=== PATIENT | female | born 1970 | race Caucasian/White ===

== ENCOUNTER 2021-06-10 00:17 | Day surgery (SDC) | payer OTHER, SELFPAY ==
[2021-06-04 10:59] VITALS: BMI 26.2
--- NOTE | 2021-06-04 11:13 | PC.NURSE ---
Report to the Outpatient Waiting Room, entrance under the green pavilion located off [facility], at time 0630 on date 06/10/21. OR Time: 0830. - You and your visitor will be asked a series of questions to screen for COVID 19 for your protection. - A mask is required within the hospital. One visitor will be allowed to accompany the patient into the hospital. Patients visitor will be instructed to remain with patient at all times or leave the building. We will allow the visitor to come back to the postoperative area when patient is ready. Preoperative COVID Testing Requirements: No COVID Test needed if: (proof is required; if not received patient will have Rapid Test prior to entry) - Patient has received COVID Vaccine at least 14 days prior to procedure date or - Patient has positive COVID test result within last 90 days of surgery date. COVID Test needed if above criteria is not met Patients may have clear liquids (water, carbonated beverages, clear teas, apple juice) until 3 hours prior to surgery with a maximum of 20 ounces. - No food from midnight until time of surgery Take the following medications with a SIP of water the morning of surgery: ACYCLOVIR (IF NEEDED) Medications to discontinue per physician: VITAMINS Date to take last dose: 06/07/21 Please no make-up, nail bulgarian, hairspray, perfume, deodorant, or body powder the day of surgery. No jewelry (including any body piercings) or valuables the day of surgery, leave them at home. Please take a shower or bath the night before, or the morning of, surgery with an antibacterial soap. Wear comfortable, loose fitting clothing. - Jewelry must be removed prior to entering the operating room. Rings and piercings that are not removed may be cut off. - The hospital will not accept responsibility for valuables. - Please leave all valuables, including medications, at home the day of surgery. If you are going home after surgery, a licensed front loader residential driver must drive you home. - NO public transportation without another adult. - We recommend that an adult stay with you for 24 hours following discharge. - We also recommend that you do not drive, make important decision, drink alcoholic beverages, or take any drugs that were not prescribed by your health care provider for at least 24 hours after your discharge time. Follow any additional instructions given to you from your surgeon. Telephone instructions given to LESLYE RODRIGUEZ and asked if any additional questions and then verbalized understanding. Patient advised to call surgeon office or pre surgery nurse liaison [phone] if any additional questions.
--- NOTE | 2021-06-10 07:13 | WPDHPUPDATE1 ---
History and Physical Update Update Date/Time: 06/10/21 07:13 History and Physical has been reviewed, including an updated exam of the patient. There are NO changes in the patient's condition. Risks, benefits, and alternatives have been discussed and questions answered. Patient agrees to proceed with procedure.
--- NOTE | 2021-06-10 07:18 | WPDANESEPPF ---
Anes - Initial Pre Proc Eval Procedure: Operation Date: 06/10/21 08:45 Proposed Procedures p Excision Right Dorsal Wrist Subcutaneous Mass - Fransico Cabrera MD Date/Time: 06/10/21 07:18 Surgeon: Fransico Cabrera MD Pre Op Diagnosis: right dorsal wrist subq mass Patient Data Age: 51 Gender: F Height: 1.63 m Weight: 69.4 kg Allergies Allergy/AdvReac Type Severity Reaction Status Date / Time No Known Allergies Allergy Verified 06/04/21 10:58 Home Medications Medication Instructions Recorded Confirmed Type acyclovir 400 mg tablet 400 mg PO DAILY PRN 03/03/20 06/04/21 History multivitamin 1 tablet PO DAILY 05/11/21 06/04/21 History Patient hx anesthesia problems: none Family hx anesthesia problems: none Results Review: All pre-operative results and documents have been reviewed as part of the pre-operative evaluation. [facility] Past Medical History Medical History (Updated 06/10/21 @ 07:18 by Stanton Proctor MD) Anxiety Cyst of neck 2009 removed from back of neck, benign Depression Herpes HSV2 Hx of migraines Screening mammogram, encounter for Surgical History Surgical History History of 2004 2008 History of left salpingo-oophorectomy 06/26/20 RA lscope LSO for ovarian cyst Family History Family History Mother Depression Sibling Depression Social History Social History Smoking status: Never smoker Alcohol intake: current Drinks per week: 1 Alcohol use details: 2/MONTH Substance use: never Substance use type: does not use Living arrangements: with family Additional living arrangements comments: spouse 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 Gender identity (if verbalized by the patient): Female Sexual Orientation (if Verbalized by the Patient): Straight or Heterosexual Spiritual care concerns: No Anes - Eval Final PreProcedure Day of Procedure 06/10/21 07:18 Patient weight: normal Heart: regular rate and rhythm Lungs: clear to auscultation Airway: Mallampati scale class II Neurological: alert and oriented Last oral intake: >/= 8 hours ASA classification: II Emergent: no Anesthetic plan: proceed Anesthesia type and monitoring: general GIVS and standard monitoring Results Review: All pre-operative results and documents have been reviewed as part of the pre-operative evaluation. Informed Consent: The patient's anesthetic plan and its attendant risks and benefits were discussed with the patient/family/POA. Questions were solicited and answers provided to the satisfaction of the patient/family/POA.
[2021-06-10 07:35] VITALS: BMI 26.7
[2021-06-10] MEDS: LACTATED RINGERS 1,000 ML 30 ML IV CONT (07:40)
[2021-06-10] MEDS: BACITRACIN OINTMENT 15 GM TUBE 1 APPLIC TOPICAL (09:04)
[2021-06-10 09:14] VITALS: BP 96/65; PULSE 90; RESP 12; O2SAT 94
--- NOTE | 2021-06-10 09:21 | P.OP_ITS ---
Procedure Note - Detailed Date of Procedure 06/10/21 Pre-op Diagnosis right dorsal wrist subq mass Post-op Diagnosis other (Ganglion cyst right dorsal wrist) Procedure Performed Excision of right dorsal wrist ganglion cyst. Surgeon Fransico Cabrera MD Anesthesia MAC Description of Procedure The mass on the right dorsal wrist was marked in the holding area. The patient was taken to the operating room where she was placed supine on the operating table. A time-out was held confirmed. The extremity was prepped and draped in usual fashion. A tourniquet was placed on the arm. The site was remarked and locally infiltrated with 1% lidocaine with epinephrine. The tourniquet was inflated to 250 mmHg. The transverse incision was made and dissection was carried through the subcutaneous tissue to the surface of the ganglion cyst lying beneath a fat pad. A cutaneous nerve branch was identified dissected sli ghtly and retracted throughout the rest of the case. The cyst was carefully dissected around the surface to its origin at the extensor capsule and was removed. The wound was closed with 4-0 Monocryl suture in the subcutaneous tissue. The skin was closed with intradermal 4-0 Monocryl interrupted sutures. The usual bandage was applied tourniquet was released. The patient was discharged with instructions in wound care and follow-up and a prescription for hydrocodone 5/325 6. Estimated Blood Loss 0 Tourniquet Time 20 Drains No Packing No Pathology none sent Complications No immediate complications Condition stable Disposition same day
[2021-06-10 09:40] VITALS: BP 108/67; PULSE 75; RESP 14; O2SAT 99
[2021-06-10] MEDS: oxyCODONE HCL (*CRX) 5 MG TAB IR PO (10:05)
[2021-06-10 10:10] VITALS: BP 112/68; PULSE 67; RESP 14
== END 2021-06-10 10:32 | disposition home or self-care (01) ==
PROVIDERS: Visit Provider Plastic Surgery
PROC: (CPT 25111; principal; 2021-06-10 08:45)
DX: M67.431 Ganglion, right wrist (principal); B00.9 Herpesviral infection, unspecified
CPT/HCPCS: 25111; A9270; J2250; J2704; J3010; J7120

== ENCOUNTER 2021-11-19 01:17 | Day surgery (SDC) | payer OTHER, SELFPAY ==
[2021-11-04 14:03] VITALS: BMI 27.6
[2021-11-19 10:24] VITALS: BMI 27.7
[2021-11-19 10:25] VITALS: BP 108/96; PULSE 74; RESP 16; TEMP 36.4; O2SAT 98
[2021-11-19] MEDS: LACTATED RINGERS 1,000 ML 150 ML IV CONT (10:34)
--- NOTE | 2021-11-19 10:46 | P.HP_ITS ---
History of Present Illness History of Present Illness Consent: Risks, benefits, and alternatives have been discussed and questions answered. Patient agrees to proceed with procedure. Chief complaint: neoplasm screening Narrative: Geno Saucedo is a 51 year old female Referred for colon cancer screening. Review of Systems Review of Systems: All systems reviewed & are unremarkable except as noted in HPI and below PMFSH Past Medical History Medical History Anxiety Cyst of neck 2010 removed from back of neck, benign Depression Herpes HSV2 Hx of migraines Screening mammogram, encounter for Surgical History Surgical History History of 2004 2008 History of left salpingo-oophorectomy 06/26/20 RA lscope LSO for ovarian cyst Family History Family History Mother Depression Sibling Depression Social History Social History Smoking status: Never smoker Alcohol intake: current Drinks per week: 1 Alcohol use details: 2/MONTH Substance use: never Substance use type: does not use Living arrangements: with family Additional living arrangements comments: spouse 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 Gender identity (if verbalized by the patient): Female Sexual Orientation (if Verbalized by the Patient): Straight or Heterosexual Spiritual care concerns: No Meds Home Medications and Allergies Home Medications Medication Instructions Recorded Confirmed Type acyclovir 400 mg tablet 400 mg PO DAILY PRN Cold Sores 03/03/20 11/04/21 History Allergies Allergy/AdvReac Type Severity Reaction Status Date / Time No Known Allergies Allergy Verified 11/04/21 14:01 Vital Signs Vital Signs - 24 hr 11/19/21 10:25 Temperature 36.4 C Pulse Rate 74 Respiratory Rate 16 Blood Pressure 108/96 H Pulse Oximetry 98 Oxygen Delivery Room Air Exam Resp: Auscultation: clear to auscultation bilaterally Cardio: Rate: regular rate Rhythm: regular rhythm GI: GI Palp: Yes Soft to palpation and No Tenderness to palpation present (GI) Assessment and Plan Assessment and plan (1) Colon cancer screening: Code(s): Z12.11 - Encounter for screening for malignant neoplasm of colon Status: Acute Assessment and Plan: Colonoscopy with possible biopsy or polypectomy or cautery or injection of substances.
--- NOTE | 2021-11-19 11:06 | P.PNAN_ITS ---
Anes - Initial Pre Proc Eval Procedure: Operation Date: 11/19/21 11:30 Proposed Procedures p Screening Colonoscopy - Jayson Padilla MD Date/Time: 11/19/21 11:06 Surgeon: Jayson Padilla MD Pre Op Diagnosis: neoplasm screening Patient Data Age: 51 Gender: F Height: 1.63 m Weight: 73.3 kg Last Vital Signs Temp 97.6 F 11/19/21 10:25 Pulse 74 11/19/21 10:25 Resp 16 11/19/21 10:25 BP 108/96 H 11/19/21 10:25 Pulse Ox 98 11/19/21 10:25 O2 Del Method Room Air 11/19/21 10:25 Allergies Allergy/AdvReac Type Severity Reaction Status Date / Time No Known Allergies Allergy Verified 11/04/21 14:01 Home Medications Medication Instructions Recorded Confirmed Type acyclovir 400 mg tablet 400 mg PO DAILY PRN Cold Sores 03/03/20 11/04/21 History Patient hx anesthesia problems: none Family hx anesthesia problems: none Results Review: All pre-operative results and documents have been reviewed as part of the pre- operative evaluation. [facility] Past Medical History Medical History Anxiety Cyst of neck 2010 removed from back of neck, benign Depression Herpes HSV2 Hx of migraines Screening mammogram, encounter for Surgical History Surgical History History of 2004 2008 History of left salpingo-oophorectomy 06/26/20 RA lscope LSO for ovarian cyst Family History Family History Mother Depression Sibling Depression Social History Social History Smoking status: Never smoker Alcohol intake: current Drinks per week: 1 Alcohol use details: 2/MONTH Substance use: never Substance use type: does not use Living arrangements: with family Additional living arrangements comments: spouse 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 Gender identity (if verbalized by the patient): Female Sexual Orientation (if Verbalized by the Patient): Straight or Heterosexual Spiritual care concerns: No Anes - Eval Final PreProcedure Day of Procedure 11/19/21 11:06 Patient weight: normal Heart: regular rate and rhythm Lungs: clear to auscultation Airway: Mallampati scale class II Neurological: alert and oriented Last oral intake: >/= 8 hours ASA classification: II Emergent: no Anesthetic plan: proceed Anesthesia type and monitoring: general GIVS and standard monitoring Results Review: All pre-operative results and documents have been reviewed as part of the pre- operative evaluation. Informed Consent: The patient's anesthetic plan and its attendant risks and benefits were discussed with the patient/family/POA. Questions were solicited and answers provided to the satisfaction of the patient/family/POA.
[2021-11-19 11:40] VITALS: BP 109/73; PULSE 67; RESP 16; O2SAT 98
[2021-11-19 11:50] VITALS: BP 102/69; PULSE 70; RESP 24; O2SAT 100
[2021-11-19 12:00] VITALS: BP 103/69; PULSE 71; RESP 20; O2SAT 100
== END 2021-11-19 12:14 | disposition home or self-care (01) ==
PROVIDERS: PCP Family Medicine; Visit Provider Internal Medicine Gastroenterology
PROC: 0DJD8ZZ Inspection of Lower Intestinal Tract, Via Natural or Artificial Opening Endoscopic (ICD-10-PCS; CPT 45378; principal; 2021-11-19 11:30)
DX: Z12.11 Encounter for screening for malignant neoplasm of colon (principal); F41.9 Anxiety disorder, unspecified; F32.A Depression, unspecified
CPT/HCPCS: 45378; J2704; J7120

== ENCOUNTER → 2022-02-01 12:09 | Outpatient (CLI) | payer OTHER, SELFPAY ==
--- NOTE | ~2022-02-01 | XR_ITS ---
XR knee RT 2V DATE: 02/01/2022 12:38 INDICATION: Right knee pain TECHNIQUE: AP and lateral views COMPARISON: None FINDINGS: No fracture or dislocation or joint effusion, periosteal reaction or bone destruction, radi opaque interarticular loose body or chondrocalcinosis is evident. Joint spaces are preserved. IMPRESSION: No significant abnormality Reviewed, dictated and finalized at location A. IMPRESSION: No significant abnormality
== END ==
PROVIDERS: PCP Family Medicine; Visit Provider Family Medicine
DX: M25.561 Pain in right knee (principal)
CPT/HCPCS: 73560

== ENCOUNTER 2022-02-10 07:27 | Outpatient (CLI) | payer OTHER, SELFPAY ==
[2022-02-10 08:23] LABS: Hematocrit 42.4 % (37.0-47.0); Hemoglobin 14.6 g/dL (12.0-15.0); Mean Corpuscular HGB Conc 34.4 g/dl (32-36); Platelet Count Result 207 k/mm3 (150-375); Red Blood Count 4.56 M/mm3 (4.2-5.4); White Blood Count 6.2 K/mm3 (4.5-10.0)
[2022-02-10 08:24] LABS: Alanine Aminotransferase 22 U/L (6-35); Albumin Level 4.2 g/dL (3.5-5.1); Alkaline Phosphatase 76 U/L (38-126); Anion Gap 10 mmol/L (8-16); Aspartate Amino Transferase 21 U/L (14-36); Bilirubin,Total 0.5 mg/dL (0.2-1.3); Blood Urea Nitrogen 15 mg/dL (7-17); Calcium 8.7 mg/dL (8.4-10.2); Carbon Dioxide 26 mmol/L (22-30); Chloride 104 mmol/L (98-107); Cholesterol 181 mg/dL (0-200); Estimated Glomerular Filt Rate 59; Glucose 104 mg/dL (65-110); HDL Direct 52 mg/dL; Sodium 140 mmol/L (137-145); Triglycerides 83 mg/dL (<150)
[2022-02-10 08:31] LABS: Appearance Urine Slightly Cloudy (Clear); Bilirubin Urine Negative (Negative); Blood Urine Negative (Negative); Color Urine Yellow (Yellow); Glucose Urine UA Negative (Negative); Ketones Urine Negative (Negative); Leukocyte Esterase Ur 1+ LEU/UL (NEGATIVE); Nitrate Urine Negative (Negative); Protein Urine Negative (Negative); Specific Grav Ur 1.025 (1.001-1.035); Urobilinogen Urine 0.2 mg/dL (<2.0)
[2022-02-10 08:35] LABS: LDL Cholesterol Direct 93 mg/dL
[2022-02-10 08:40] LABS: Bacteria Urine Trace /hpf; Mucus Urine Rare /lpf; Squamous Epithelial Cell Urine Many /hpf (Few)
[2022-02-10 08:54] LABS: Thyroid Stimulating Hormone 0.981 uIU/mL (0.465-4.680)
[2022-02-10 08:55] LABS: Add Urine Microscopic? YES
[2022-02-14 03:35] LABS: FSH 63.8 mIU/mL (***)
[2022-02-16 21:05] LABS: Estradiol, Ultrasensitive 36 pg/mL
== END 2022-02-10 07:28 | disposition home or self-care (01) ==
PROVIDERS: PCP Family Medicine; Visit Provider Obstetrics & Gynecology
DX: N93.9 Abnormal uterine and vaginal bleeding, unspecified (principal); Z00.00 Encounter for general adult medical examination without abnormal findings
CPT/HCPCS: 36415; 80053; 80061; 81001; 82670; 83001; 84443; 85027

== ENCOUNTER 2022-04-15 02:10 | Day surgery (SDC) | payer OTHER, SELFPAY ==
[2022-04-08 09:17] VITALS: BMI 28.0
--- NOTE | 2022-04-08 09:22 | PC.NURSE ---
Report to the Outpatient Waiting Room, entrance under the green pavilion located off [facility], at time 0600 on date 04/15/22. Planned Procedure Time: 0730. Time changes happen often and if your time is changed the preop area will call you the afternoon before. - You and your visitor will be asked to self-screen and do not enter if you have any COVID symptoms. - Only one visitor is requested with a max of two and NO children visitors are allowed at this time. - The patient visitor may be requested to leave or wait in car when not with patient due to distancing restrictions. - A mask is REQUIRED within the hospital. Patients may have clear liquids (water, carbonated beverages, clear teas, apple juice) until 3 hours prior to surgery with a maximum of 20 ounces. - No food from midnight until time of surgery Take the following medications with a SIP of water the morning of surgery: VALACYCLOVIR IF NEEDED Medications to discontinue per physician: VITAMINS Date to take last dose: 04/11/22 Please no make-up, nail singaporean, hairspray, perfume, deodorant, or body powder the day of surgery. No jewelry (including any body piercings) or valuables the day of surgery, leave them at home. Please take a shower or bath the night before, or the morning of, surgery with an antibacterial soap. Wear comfortable, loose fitting clothing. - Jewelry must be removed prior to entering the operating room. Rings and piercings that are not removed may be cut off. - The hospital will not accept responsibility for valuables. - Please leave all valuables, including medications, at home the day of surgery. If you are going home after surgery, a licensed commercial front load driver must drive you home. - NO public transportation without another adult if you receive anesthesia. - We recommend that an adult stay with you for 24 hours following discharge. - We also recommend that you do not drive, make important decision, drink alcoholic beverages, or take any drugs that were not prescribed by your health care provider for at least 24 hours after your discharge time. Follow any additional instructions given to you from your surgeon. If you or anyone in your household have experienced Covid symptoms in the past week, please notify your surgeon or the nurse liaison at the phone number below for possible testing. Telephone instructions given to PT - LESLYE RODRIGUEZ and asked if any additional questions and then verbalized understanding. Patient advised to call surgeon office or pre surgery nurse liaison [phone] if any additional questions.
--- NOTE | 2022-04-14 13:38 | PM.IMHP ---
H&P: HPI History of Present Illness Date/Time: 04/14/22 13:38 52-year-old 5 para 2031 female presents for evaluation of postmenopausal bleeding. Ultrasound has been ordered which showed a normal endometrial cavity, recent lab work has confirm menopausal status. She had not had a period for over 1 year and then had multiple episodes of light bleeding at the end of 2021, none particularly heavy but indeed has been shown to be postmenopausal on multiple occasions with lab studies and therefore presents for evaluation and tissue sampling. Chief Complaint: Postmenopausal bleeding Review of Systems Review of Systems: All systems reviewed & are unremarkable except as noted in HPI and below PMFSH Past Medical History Medical History Anxiety Cyst of neck 2010 removed from back of neck, benign Depression Herpes HSV2 Hx of migraines Screening mammogram, encounter for Vaginal discharge Surgical History Surgical History History of 2004 2008 History of left salpingo-oophorectomy 06/26/20 RA lscope LSO for ovarian cyst History of orthopedic surgery cyst removed from right hand Family History Family History Mother Depression Sibling Depression Social History Social History Smoking status: Never smoker Alcohol intake: current Drinks per week: 1 Alcohol use details: 2/MONTH Substance use: never Substance use type: does not use Additional living arrangements comments: spouse 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 Gender identity (if verbalized by the patient): Female Sexual Orientation (if Verbalized by the Patient): Straight or Heterosexual Spiritual care concerns: No Meds Home Medications and Allergies Home Medications Medication Instructions Recorded Confirmed Type acyclovir 400 mg tablet 400 mg PO DAILY PRN Cold Sores 03/03/20 04/08/22 History ibuprofen 800 mg tablet 800 mg PO Q6H PRN Pain 04/08/22 04/08/22 History multivitamin 1 tablet PO DAILY 04/08/22 04/08/22 History Allergies Allergy/AdvReac Type Severity Reaction Status Date / Time No Known Allergies Allergy Verified 04/08/22 09:16 Exam Const: General: cooperative, healthy appearing and comfortable Resp: Effort & Inspection: normal respiratory effort Auscultation: clear to auscultation bilaterally Cardio: Rate: regular rate Rhythm: regular rhythm GI: Inspection: normal to inspection Auscultation: normal bowel sounds : External Female Exam: normal external appearance Speculum Exam - Vagina: normal appearance of the vagina Speculum Exam - Cervix: normal appearance of the cervix Bimanual exam- vagina & uterus: normal bimanual exam Bimanual Exam- Adnexa, other: normal adnexae Assessment and Plan Assessment and plan (1) Postmenopausal bleeding: Code(s): N95.0 - Postmenopausal bleeding Status: Acute Assessment and Plan: proceed with hysteroscopy with uterine curettings. Further plan based on findings of pathology.
--- NOTE | 2022-04-14 16:10 | WPDANESEPPF ---
Anes - Initial Pre Proc Eval Procedure: Operation Date: 04/15/22 07:30 Proposed Procedures p Hysteroscopy Dilation and Curettage - Nishant Velarde MD Date/Time: 04/14/22 16:10 Surgeon: Nishant Velarde MD Pre Op Diagnosis: abnormal uterine bleeding Patient Data Age: 52 Gender: F Height: 1.63 m Weight: 73.95 kg Allergies Allergy/AdvReac Type Severity Reaction Status Date / Time No Known Allergies Allergy Verified 04/08/22 09:16 Home Medications Medication Instructions Recorded Confirmed Type acyclovir 400 mg tablet 400 mg PO DAILY PRN Cold Sores 03/03/20 04/08/22 History ibuprofen 800 mg tablet 800 mg PO Q6H PRN Pain 04/08/22 04/08/22 History multivitamin 1 tablet PO DAILY 04/08/22 04/08/22 History Patient hx anesthesia problems: none Family hx anesthesia problems: none Results Review: All pre-operative results and documents have been reviewed as part of the pre-operative evaluation. [facility] Past Medical History Medical History Anxiety Cyst of neck 2010 removed from back of neck, benign Depression Herpes HSV2 Hx of migraines Screening mammogram, encounter for Vaginal discharge Surgical History Surgical History History of 2004 2008 History of left salpingo-oophorectomy 06/26/20 RA lscope LSO for ovarian cyst History of orthopedic surgery cyst removed from right hand Family History Family History Mother Depression Sibling Depression Social History Social History Smoking status: Never smoker Alcohol intake: current Drinks per week: 1 Alcohol use details: 2/MONTH Substance use: never Substance use type: does not use Living arrangements: with family Additional living arrangements comments: spouse 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 Gender identity (if verbalized by the patient): Female Sexual Orientation (if Verbalized by the Patient): Straight or Heterosexual Spiritual care concerns: No Anes - Eval Final PreProcedure Day of Procedure 04/14/22 16:10 Patient weight: overweight Heart: regular rate and rhythm Lungs: clear to auscultation Airway: Mallampati scale class II Neurological: alert and oriented Last oral intake: >/= 8 hours ASA classification: II Emergent: no Anesthetic plan: proceed Anesthesia type and monitoring: general GIVS and standard monitoring Results Review: All pre-operative results and documents have been reviewed as part of the pre-operative evaluation. Informed Consent: The patient's anesthetic plan and its attendant risks and benefits were discussed with the patient/family/POA. Questions were solicited and answers provided to the satisfaction of the patient/family/POA.
[2022-04-15 06:30] VITALS: BP 100/74; PULSE 77; RESP 16; TEMP 36.4; O2SAT 100
[2022-04-15] MEDS: LACTATED RINGERS 1,000 ML 30 ML IV CONT (06:30)
[2022-04-15] MEDS: ACETAMINOPHEN 500 MG TABLET 1000 MG PO (06:30)
--- NOTE | 2022-04-15 06:57 | WPDHPUPDATE1 ---
History and Physical Update Update Date/Time: 04/15/22 06:57 History and Physical has been reviewed, including an updated exam of the patient. There are NO changes in the patient's condition. Risks, benefits, and alternatives have been discussed and questions answered. Patient agrees to proceed with procedure.
[2022-04-15] MEDS: LIDOCAINE HCL 1% PF 30 ML VIAL 10 ML INFILTRATE (07:46)
--- NOTE | 2022-04-15 07:56 | W.PM.PROC2 ---
Procedure Note - Detailed Date of Procedure 04/15/22 Pre-op Diagnosis 1. Postmenopausal bleeding Post-op Diagnosis Same (2. Uterine septum ) Procedure Performed Patient prepped and draped usual manner for this procedure. Cervix was dilated to allow the hysteroscope be placed which found atrophy throughout and a mild uterine septum. No other abnormalities were appreciated. Curettings were obtained the tissue was scant. At this point the procedure was considered terminated the patient was sent to recovery room in stable condition. Surgeon Nishant Velarde MD Anesthesia MAC and Local Findings 1. Atrophic uterine cavity 2. Minor anatomic abnormality consistent with uterine septum Description of Procedure Patient prepped in usual manner for this procedure. Cervix dilated to allow the hysteroscope be placed. Hysteroscopic exam revealed minor uterine defect consistent with small septum, and atrophic endometrial cavity. Curettings were obtained though tissue was scant. At this point the procedure was considered terminated the patient was sent to recovery room in stable condition. Estimated Blood Loss 10 Drains No Packing No Pathology Yes Complications No immediate complications Condition Stable Disposition PACU [facility] Billing Surgery - Charge Forward: Surgery Billing
[2022-04-15 08:00] VITALS: BP 103/73; PULSE 79; RESP 12; O2SAT 100
[2022-04-15] MEDS: fentaNYL CITRATE INJ (*CRX) 100 MCG/2 ML VIAL 25 MCG IV PUSH ×2 (08:14→08:17)
[2022-04-15 08:30] VITALS: BP 103/69; PULSE 71; RESP 12; O2SAT 96
[2022-04-15 08:59] VITALS: BP 119/67; PULSE 61; RESP 16
[2022-04-15] MEDS: oxyCODONE HCL (*CRX) 5 MG TAB IR PO (09:12)
[2022-04-15 09:30] VITALS: BP 106/67; PULSE 58; RESP 16
== END 2022-04-15 09:45 | disposition home or self-care (01) ==
PROVIDERS: PCP Family Medicine; Visit Provider Obstetrics & Gynecology
PROC: 0U5B8ZZ Destruction of Endometrium, Via Natural or Artificial Opening Endoscopic (ICD-10-PCS; CPT 58563; principal; 2022-04-15 07:30)
DX: N95.0 Postmenopausal bleeding (principal); B00.9 Herpesviral infection, unspecified
CPT/HCPCS: 58558; 88305; A9270; J2250; J2704; J3010; J7030; J7120

== ENCOUNTER 2022-10-04 13:54 | Outpatient (CLI) | payer OTHER, SELFPAY ==
--- NOTE | ~2022-10-04 | MM_ITS ---
EXAMINATION: MM screening [place] BI w vickie HISTORY: Screening mammogram TECHNIQUE: Craniocaudal and mediolateral oblique 3-D tomosynthesis images were obtained and synthetic 2-D images were generated. CAD analysis was submitted and interpreted. COMPARISON: 04/16/2015, 03/28/2014 bilateral screening mammogram examinations BREAST PARENCHYMAL COMPOSITION: There are scattered areas of fibroglandular density. FINDINGS: There is a 6 mm circumscribed low-density opacity with halo sign in the posterior outer mid right breast; the mammographic features are benign. There is no evidence of suspicious mass, calcifi cation, or architectural distortion to suggest malignancy in either breast. There has been no suspici ous interval change. IMPRESSION: 1. Benign finding. No mammographic evidence of malignancy. 2. Recommend routine screening mammography in one year. BI-RADS Category 2: Benign finding(s). Reviewed, dictated and finalized at location A.
== END 2022-10-04 13:55 | disposition home or self-care (01) ==
LOC: CHSIMG 13:56
PROVIDERS: PCP Family Medicine; Visit Provider Obstetrics & Gynecology
DX: Z12.31 Encounter for screening mammogram for malignant neoplasm of breast (principal)
CPT/HCPCS: 77063; 77067

== ENCOUNTER 2022-11-11 08:49 | Emergency (ER) | payer OTHER, SELFPAY ==
--- NOTE | 2022-11-11 09:11 | ED.URI ---
HPI - URI/Sore Throat General Chief Complaint: Upper Respiratory Infection Stated Complaint: FEVER/CHILLS/SORE THROAT Time Seen by Provider: 11/11/22 09:11 Source: patient, RN notes reviewed and old records reviewed Mode of arrival: ambulatory Limitations: no limitations History of Present Illness HPI Narrative: 52 year old female accompanied by son who is also ill presents t express care with complaints of 2 day duration of sore throat, fevers, sinus pressure, headache and intermittent cough. Patient reports that her temperature was 102F last evening and she took some Tylenol, [place] cold medication, and did nasal rinse. Patient reports that throat is painful with swallowing , has headache and facial sinus pressure does have history of migraines and did take migraine medication also last evening. Patient denies any shortness of breath or any history of asthma, patient reports that older son has been recently ill also but seems to be getting better. MD elicited complaint: cough, sore throat, rhinorrhea, nasal congestion, sinus pain and other (headache) Onset (ago): day(s) (2) Pain scale (0-10): 5 Able to tolerate fluids by mouth: Yes Treatments prior to arrival: acetaminophen, cold medicine and other (sinus rinse) Related Data Home Medications Medication Instructions Recorded Confirmed ibuprofen 800 mg tablet 800 mg PO Q6H PRN Pain 04/08/22 11/11/22 multivitamin 1 tablet PO DAILY 04/08/22 11/11/22 Allergies Allergy/AdvReac Type Severity Reaction Status Date / Time No Known Allergies Allergy Verified 11/11/22 09:03 Review of Systems Review of Systems: CONSTITUTIONAL: Reports malaise, chills, sweats, or fever. EYES: Denies visual changes, redness, or discharge. ENT: Reports rhinorrhea, congestion, sinus pain, no otalgia positive for sore throat. CARDIOVASCULAR: Denies chest pain, palpitations, or edema. RESPIRATORY: Reports intermittent cough.? Denies dyspnea. GASTROINTESTINAL: Denies abdominal pain, nausea, vomiting, diarrhea SKIN: Denies rash or itching. MUSCULOSKELETAL: Denies myalgia. NEUROLOGIC: Reports headache. All systems reviewed & are unremarkable except as noted in HPI and below PMFSH Past Medical History Medical History Anxiety Cyst of neck 2010 removed from back of neck, benign Depression Herpes HSV2 Hx of migraines Migraine headache Screening mammogram, encounter for Vaginal discharge Surgical History Surgical History History of 2004 2008 History of hysteroscopy (04/15/22) Hscope D&C History of left salpingo-oophorectomy 06/26/20 RA lscope LSO for ovarian cyst History of orthopedic surgery cyst removed from right hand Family History Family History Mother Depression Sibling Depression Social History Social History Smoking status: Never smoker Alcohol intake: current Drinks per week: 1 Alcohol use details: 2/MONTH Substance use: never Substance use type: does not use Living arrangements: with family Additional living arrangements comments: spouse Occupation/Education: occupation 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 There is no relevant family history pertinent to the presenting complaint Exam Narrative: GENERAL: Well-appearing, well-nourished, and in no acute distress. HEAD: Normocephalic EYES: PERRLA, conjunctivae clear ENT: Nares clear, turbinates edematous and erythematous, clear discharge. Mucou
[2022-11-11 09:12] VITALS: BP 112/87; PULSE 90; RESP 16; TEMP 36.6; O2SAT 98
== END 2022-11-11 09:45 | disposition home or self-care (01) ==
PROVIDERS: Emergency Provider Registered Nurse; PCP Family Medicine
DX: J06.9 Acute upper respiratory infection, unspecified (principal); R05.9 Cough, unspecified
CPT/HCPCS: 87081; 87880; 99213; G0463

== ENCOUNTER 2023-11-15 08:52 | Emergency (ER) | payer OTHER, SELFPAY ==
[2023-11-15 09:02] VITALS: BP 129/89; PULSE 84; RESP 16; TEMP 36.9; O2SAT 97
--- NOTE | 2023-11-15 09:06 | ED.EYEPROB ---
HPI - Eye Problem General Chief complaint: Eye Problems Stated complaint: Poss pink eye/sinus issues Time Seen by Provider: 11/15/23 09:05 Source: patient Mode of arrival: ambulatory Limitations: no limitations History of Present Illness HPI Narrative: Geno is a 53-year-old female patient presenting to the clinic today with complaints of possible pinkeye that started in the right eye last night and now is moving to the left eye. Is having brown discharge coming from the eye. She denies any pain or visual changes however she does have some itchiness. Also concerned about a possible sinus infection. She reports she has had symptoms for approximately 1 week. Is blowing out green nasal discharge with blood. Is having a lot of sinus pressure and congestion. She denies any fever or chills. Also reports a sore throat and feels as though her glands are swollen. She denies any chest pain or shortness of breath. Related Data Home Medications Medication Instructions Recorded Confirmed multivitamin 1 tablet PO DAILY 04/08/22 11/15/23 Allergies Allergy/AdvReac Type Severity Reaction Status Date / Time No Known Allergies Allergy Verified 11/15/23 09:06 Review of Systems Review of Systems: Pertinent positives per HPI. Patient denies any fever, chills, rash, headache, visual changes, dizziness, shortness of breath, chest pain, palpitations, nausea, vomiting, diarrhea, constipation, abdominal pain, or any urinary issues. [facility] Past Medical History Medical History Anxiety Cyst of neck 2009 removed from back of neck, benign Depression Herpes HSV2 Hx of migraines Migraine headache Screening mammogram, encounter for Vaginal discharge Surgical History Surgical History History of 2004 2008 History of hysteroscopy (04/15/22) Hscope D&C History of left salpingo-oophorectomy 06/26/20 RA lscope LSO for ovarian cyst History of orthopedic surgery cyst removed from right hand Family History Family History Mother Depression Sibling Depression Social History Social History Smoking status: Never smoker Second hand tobacco smoke exposure: No Alcohol intake: current Drinks per week: 1 Alcohol use details: 2/MONTH Substance use: never Substance use type: does not use Do You Feel Safe in your Home?: Yes Lack of Transportation: No Lack of Food: Never True Current Housing: I Have Housing Concerned About Future Housing: No Difficulty Paying Gas/Electric Bills: No Difficulty Paying for Meds: No Currently Unemployed: No Education: Master's Degree or Higher Difficulty w/ Childcare or Family Care: No Living arrangements: with family Additional living arrangements comments: spouse Occupation/Education: occupation 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 There is no relevant family history pertinent to the patient complaint. Exam Narrative: General: Well-developed, well nourished, in no apparent distress Head: Normocephalic, atraumatic Eyes: Pupils equally round and reactive to light bilaterally, EOM intact, sclera and conjunctive injected bilaterally, light brown mucopurulent discharge coming from the right eye, lids normal Ears: TMs intact, red, congested, ear canals clear, no drainage, grossly hearing normal. Nose: Nares patent, green nasal discharge, dried blood noted in bilateral nares, white streaking with mod
== END 2023-11-15 09:14 | disposition home or self-care (01) ==
PROVIDERS: Emergency Provider Nurse Practitioner Family; PCP Family Medicine
DX: J01.90 Acute sinusitis, unspecified (principal); H10.9 Unspecified conjunctivitis
CPT/HCPCS: 99213; G0463

== ENCOUNTER 2023-12-01 08:18 | Outpatient (CLI) | payer OTHER, SELFPAY ==
--- NOTE | ~2023-12-01 | MM_ITS ---
EXAMINATION: MM screening [place] BI w vickie HISTORY: Screening TECHNIQUE: Craniocaudal and mediolateral oblique 3-D tomosynthesis images were obtained and synthetic 2-D images were generated. CAD analysis was submitted and interpreted. COMPARISON: Comparison to multiple prior studies sequentially, with oldest reviewed study dated 03/11. BREAST PARENCHYMAL COMPOSITION: Not dense: There are scattered areas of fibroglandular density. FINDINGS: There is no evidence of suspicious mass, calcification, or architectural distortion to sugg est malignancy in either breast. There has been no suspicious interval change. IMPRESSION: 1. No mammographic evidence of malignancy. 2. Recommend routine screening mammography in one year. BI-RADS Category 1: Negative Reviewed, dictated and finalized at location B.
== END 2023-12-01 08:19 | disposition home or self-care (01) ==
PROVIDERS: PCP Family Medicine; Visit Provider Family Medicine
DX: Z12.31 Encounter for screening mammogram for malignant neoplasm of breast (principal)
CPT/HCPCS: 77063; 77067

== ENCOUNTER 2024-07-12 08:28 | Outpatient (CLI) | payer OTHER, SELFPAY ==
[2024-07-12 10:41] LABS: Add Urine Microscopic? YES; Appearance Urine Clear (Clear); Bacteria Urine None Seen /hpf; Bilirubin Urine Negative (Negative); Blood Urine Negative (Negative); Color Urine Yellow (Yellow); Glucose Urine UA Negative (Negative); Ketones Urine Negative (Negative); Leukocyte Esterase Ur 1+ LEU/UL (Negative); Nitrate Urine Negative (Negative); Non Pathogenic Casts 0-2; Protein Urine Negative (Negative); RBC Urine 0-2 /hpf (0-2); Specific Grav Ur 1.024 (1.001-1.035); Squamous Epithelial Cell Urine None Seen /hpf (Few); Urobilinogen Urine 0.2 mg/dL (<2.0)
[2024-07-12 10:43] LABS: Alanine Aminotransferase 35 U/L (6-35); Albumin Level 4.4 g/dL (3.5-5.1); Alkaline Phosphatase 99 U/L (38-126); Anion Gap 10 mmol/L (4-12); Aspartate Amino Transferase 27 U/L (14-36); Bilirubin,Total 0.6 mg/dL (0.2-1.3); Blood Urea Nitrogen 18 mg/dL (7-17); Calcium 9.4 mg/dL (8.4-10.2); Carbon Dioxide 25 mmol/L (22-30); Chloride 105 mmol/L (98-107); Cholesterol 165 mg/dL (0-200); Estimated Glomerular Filt Rate > 60; Glucose 90 mg/dL (65-110); HDL Direct 58 mg/dL; Potassium 4.3 mmol/L (3.4-5.0); Sodium 140 mmol/L (137-145); Triglycerides 91 mg/dL (<150)
[2024-07-12 10:54] LABS: LDL Cholesterol Direct 81 mg/dL
[2024-07-12 11:14] LABS: Thyroid Stimulating Hormone 0.677 uIU/mL (0.465-4.680)
[2024-07-12 11:59] LABS: Hematocrit 46.1 % (37.0-47.0); Hemoglobin 15.5 g/dL (12.0-15.0); Mean Corpuscular HGB Conc 33.6 g/dl (32-36); Mean Corpuscular Hemoglobin 31.1 pg (26-34); Mean Corpuscular Volume 92.6 fl (80-100); Mean Platelet Volume 9.6 fl (7.4-10.4); Platelet Count Result 233 k/mm3 (150-375); Red Blood Count 4.98 M/mm3 (4.2-5.4); Red Cell Distribution Width 12.3 % (11.5-14.5); White Blood Count 5.8 K/mm3 (4.5-10.0)
== END 2024-07-12 08:29 | disposition home or self-care (01) ==
LOC: ANHLAB 08:31
PROVIDERS: PCP Family Medicine; Visit Provider Family Medicine
DX: E78.5 Hyperlipidemia, unspecified (principal); R53.83 Other fatigue; Z00.00 Encounter for general adult medical examination without abnormal findings
CPT/HCPCS: 36415; 80053; 80061; 81001; 84443; 85027

== ENCOUNTER 2024-08-28 11:50 | Outpatient (CLI) | payer OTHER, SELFPAY ==
[2024-08-28 12:19] LABS: Iron 128 ug/dL (37-170)
[2024-08-28 12:28] LABS: Percent Iron Saturation 53 % (20-50)
== END 2024-08-28 11:51 | disposition home or self-care (01) ==
LOC: ANHLAB 11:52
PROVIDERS: PCP Family Medicine; Visit Provider Physician Assistant Medical
DX: Z13.228 Encounter for screening for other metabolic disorders (principal); Z13.29 Encounter for screening for other suspected endocrine disorder; Z83.49 Family history of other endocrine, nutritional and metabolic diseases
CPT/HCPCS: 36415; 81256; 82728; 83540; 83550

== ENCOUNTER 2024-12-03 13:46 | Outpatient (CLI) | payer OTHER, SELFPAY ==
--- NOTE | ~2024-12-03 | MM_ITS ---
EXAMINATION: screening [facility] BI w vickie INDICATION: Asymptomatic, referred for screening mammogram COMPARISON: 12/01/2023 through 03/28/2014 TECHNIQUE: Digital Breast Tomosynthesis CC, MLO views of Both breasts were obtained with computer-aided detection to assist in interpretation of the study. FINDINGS: There are scattered areas of fibroglandular density. There are 2 adjacent asymmetries seen on the cc view in the Medial right breast at posterior third. Elsewhere, there are no mammographic features of malignancy. IMPRESSION: 1. Right breast asymmetries. 2. No evidence of malignancy in the Left breast. RECOMMENDATION: Right breast Diagnostic mammogram with true lateral, appropriate spot compression views and an ultrasound if needed. BI-RADS Category 0: Incomplete: Needs additional imaging evaluation. Reviewed, dictated and finalized at location B. IMPRESSION: 1. Right breast asymmetries. 2. No evidence of malignancy in the Left breast. RECOMMENDATION: Right breast Diagnostic mammogram with true lateral, appropriate spot compressi on views and an ultrasound if needed. BI-RADS Category 0: Incomplete: Needs additional imaging evaluation.
--- OUTSIDE RECORDS SUMMARY | 2024-12-03 13:51 | XMS_ITS | Clinical Summary ---
Author Organization [facility] Ismael torres Kemo Address [address] [place] [address] Care Team Providers Care Motorcycle Police Officer Name Role Phone Jared Hernandes MD Primary Care Provider Social History Tobacco Use Types Packs/Day Years Used Date Smoking Tobacco: Never Assessed Comments Unknown Sex and Gender Information Value Date Recorded Sex Assigned at Not on file Legal Sex Female 10:42 AM CDT Gender Identity Not on file Sexual Orientation Not on file Plan of Treatment Upcoming Encounters Date Type Department Care Team (Late st Contact Info) Description 01/23/2025 1:30 PM CDT Office Visit [facility] Oncology and Hematology - [place] [address] [facility] [address] [place] [address] Storm Tai MD [address] [place] [address] Health Maintenance Due Date Last Done Comments DTAP/TDAP/TD VACCINES (1 - Tdap) 1990 HEPATITIS B VACCINES (1 of 3 - 19+ 3-dose series) 02/09 HPV/Cotest (21-29) 02/19/1992 CERVICAL CANCER SCREENING 2001 HPV/Cotest (30-65) 2001 PAP SMEAR 2001 BREAST CANCER SCREENING 2011 COLORECTAL SCREENING 02/19/2016 Colorectal Cancer Screening 02/19/2016 FIT-DNA Q 3 years 02/19/2016 FIT/FOBT Q 1 year 02/19/2016 Flex Sig/CT Colonography Q 5 years 02/19/2016 ZOSTER VACCINE (1 of 2) 2021 INFLUENZA VACCINE (#1) 2024 Insurance [facility] CHOICE [id number] Care Teams Motorcycle Police Officer Relationship Specialty Start Date End Date Jared Hernandes MD [address] [facility] [address] [place] [address] PCP - General Family Practice 10/25/24
== END 2024-12-03 13:47 | disposition home or self-care (01) ==
LOC: CHSIMG 13:47
PROVIDERS: PCP Family Medicine; Visit Provider Obstetrics & Gynecology
DX: Z12.31 Encounter for screening mammogram for malignant neoplasm of breast (principal); R92.8 Other abnormal and inconclusive findings on diagnostic imaging of breast
CPT/HCPCS: 77063; 77067

== ENCOUNTER 2024-12-13 08:57 | Outpatient (CLI) | payer OTHER, SELFPAY ==
--- NOTE | ~2024-12-13 | MMUS_ITS ---
EXAMINATION: US breast RT limited, MM diagnostic lima RT w vickie HISTORY: Inconclusive mammogram. Right breast asymmetries. TECHNIQUE: [Additional images of the [[right breast]] were performed using full field digital mammography. 3-D tomosynthesis were also obtained and synthetic 2- D images were generated. CAD analysis was submitted and interpreted. High resolution [right breast ultrasound was performed of the medial right breast from the 1 to 5:00 position.] ] COMPARISON: Mammograms from 12/03/2024, 12/01/2023 and 10/04/2022 BREAST PARENCHYMAL COMPOSITION: There are scattered areas of fibroglandular density FINDINGS: MAMMOGRAPHIC FINDINGS: Redemonstration of 2 adjacent asymmetries seen in the medial right breast seen in the right cc projection, posterior depth. No sonographic correlate.The findings are probably benign. ULTRASOUND: No cystic or solid mass identified. IMPRESSION/RECOMMENDATION: 1. Probably benign findings in the right breast. A diagnostic right breast mammogram and a diagnostic right breast ultrasound in 6 months is recommended. BIRADS 3-probably benign Reviewed, dictated and finalized at location Q. IMPRESSION/RECOMMENDATION: 1. Probably benign findings in the right breast. A diagnostic right breast mamm ogram and a diagnostic right breast ultrasound in 6 months is recommended. BIRADS 3-probably benign IMPRESSION/RECOMMENDATION: 1. Probably benign findings in the right breast. A diagnostic right breast mamm ogram and a diagnostic right breast ultrasound in 6 months is recommended. BIRADS 3-probably benign
--- OUTSIDE RECORDS SUMMARY | 2024-12-13 09:10 | XMS_ITS | Clinical Summary ---
Author Organization [facility] Ismael torres Kewi Address [address] [place] [address] Care Team Providers Care Fish And Wildlife Warden Name Role Phone Jared Hernandes MD Primary [...] Description 01/23/2025 1:30 PM CDT Office Visit [facility] Oncology and Hematology - [place] [address] [facility] [[email or web address] [address] [place] [address] Storm Tai MD [address] [place] [address] Health Maintenance Due Date Last [...] 2) 2021 INFLUENZA VACCINE (#1) 2024 Insurance [facility] CHOICE [id number] Care Teams Fish And Wildlife Warden Relationship Specialty Start Date End Date Jared Hernandes MD [address] [facility] [address] [place] [address] PCP - General Family Practice 10/25/24
== END 2024-12-13 08:58 | disposition home or self-care (01) ==
LOC: CHSIMG 08:58
PROVIDERS: PCP Family Medicine; Visit Provider Obstetrics & Gynecology
DX: N64.89 Other specified disorders of breast (principal)
CPT/HCPCS: 76642; 77061; 77065; G0279

== ENCOUNTER 2025-01-23 13:55 | Outpatient (CLI) | payer OTHER, SELFPAY ==
--- OUTSIDE RECORDS SUMMARY | 2025-01-23 13:30 | XMS_ITS | Encounter Summary ---
Author Organization [facility] [employer] [facility] Address [address] [place] [address] Care Team Providers Care Signing Teacher Name Role Phone Jared Hernandes MD Primary Care Provider [phone] Reason for Visit * Reason Comments Establish Care Encounter Details Date Type Department Care Team (Late st Contact Info) Description 01/23/2025 1:30 PM CDT Office Visit [facility] Oncology and Hematology - [place] [address] [facility] [address] [place] [address] Storm Tai MD [address] [facility] [address] [place] [address] Hereditary hemochromatosis (Primary Dx) Social History Tobacco Use Types Packs/Day Years Used Date Smoking Tobacco: Never Smokeless Tobacco: Never Alcohol Use Standard Drinks/Week Comments Yes 0 (1 standard drink = 0.6 oz pur e alcohol) Comments Unknown Sex and Gender Information Value Date Recorded Sex Assigned at Not on file Legal Sex Female 10:42 AM CDT Gender Identity Not on file Sexual Orientation Not on file documented as of this encounter Last Filed Vital Signs Vital Sign Reading Time Taken Comments Blood Pressure 129/78 01/23/2025 1:31 PM CDT Pulse 77 01/23/2025 1:31 PM CDT Temperature 36.6 C (97.9 F) 01/23/2025 1:31 PM CDT Respiratory Rate 15 01/23/2025 1:31 PM CDT Oxygen Saturation 98% 01/23/2025 1:31 PM CDT Inhaled Oxygen Concentration - - Weight 78.7 kg (173 lb 9.6 oz) 01/23/2025 1:31 P M CDT Height 162.6 cm (5' 4) 01/23/2025 1:31 PM CDT Body Mass Index 29.8 01/23/2025 1:31 PM CDT documented in this encounter Progress Notes * Storm Tai MD - 01/23/2025 1:28 PM CDT Hematology-oncology consult Note Requesting Physician Jared Hernandes MD Primary Care Physician Jared Hernandes MD Problem list There is no problem list on file for this patient. Previous TREATMENT ? Measurable Disease ? Reason for Visit Geno Saucedo is a 54 y.o. female who was referred for consultation for hemochromatosis. History of present illness This is a pleasant 54-year-old female who has been in good health except history of recurrent herpes and migraine referred to me for hemochromatosis. Patient 20 sister was diagnosed with hemochromatosis. Patient father also has hemochromatosis. She has been complaining of tiredness and fat igue and arthralgias. Patient had oophorectomy done previously. She has gone into menopause about 3years ago. She drink alcohol once a week week. Denies any liver disease. Labs from August 2024 showed iron saturation of 53% with ferritin of 104. Liver enzymes were normal. Serum iron 128. 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 Denies any other new complaints. Past Medical History No past medical history on file. Migraine headaches Recurrent genital herpes Surgical History Past Surgical History: Procedure Laterality Date HX SECTION HX OVARY SURGERY removal left Medications Current Outpatient Medications Medication Sig Dispense Refill acyclovir (ZOVIRAX) 400 mg tablet TAKE 1 TABLET BY MOUTH DAILY NEEDED FOR COLD SORES eletriptan (RELPAX) 40 mg Tablet PLEASE SEE ATTACHED FOR DETAILED DIRECTIONS estradioL (ESTRACE) 1 mg tablet Take 1 Tablet by mouth daily. progesterone micronized (PROMETRIUM) 200 mg Capsule Take 200 mg by mouth daily at bedtime. No current facility-administered medications for this visit. Allergies No Known Allergies Immunizations: There is no immunization history on file for this patient. Family History Family History Problem Relation Name Age of Onset No Known Problems Father No Known Problems Mother No Known Problems Brother No Known Problems Sister Social History Social History Tobacco Use Smoking status: Never Smokeless tobacco: Never Substance Use Topics Alcohol use: Yes Review of Systems Constitutional: Patient did not mention fever; no night sweats; no anorexia; no weight loss; complain of tiredness and fatigue NEENT: Patient did not mention headache; no change in vision; no change in hearing; no sore throat;no dysphagia Respiratory: Patient did not mention shortness of breath; no pleuritic chest pain; no cough; no hemoptysis Cardiac: Patient did not mention cardiac-like chest pain; no palpitations; no orthopnea; no PND; noDOE Breasts: Patient did not mention tenderness; no masses GI: Patient did not mention abdominal pain; no nausea; no vomiting; no diarrhea; no hematochezia; no melena : Patient did not mention dysuria; no frequency; no hesitancy; no hematuria SENIOR IT AUDITOR: Musculosketetal: Patient did not mention bone pain; complain of arthralgia Skin: Patient did not mention pruritis; no rash; no petechiae; no ecchymoses Endocrine: Patient did not mention polydipsia; no polyuria; no unusual weight gain Neuro: Patient did not mention headache; no change in vision; no sensory changes; no muscle weakness; no confusion; no seizures Psych: Patient did not mention anxiety; no depression; Physical Exam Vitals: As per nursing note Constitutional: Well developed, well nourished, no acute distress, non-toxic appearance Teeth and gum. No signs of infection or swelling. Eyes: PERRL, conjunctiva normal HEENT: Atraumatic, external ears normal, nose normal, oropharynx moist, no pharyngeal exudates. no sinus tenderness Neck- normal range of motion, no tenderness, supple Respiratory: No respiratory distress, normal breath sounds, no rales, no wheezing Cardiovascular: Normal rate, normal rhythm, no murmurs, no gallops, no rubs GI: Soft, nondistended, normal bowel sounds, nontender, no splenomegaly, no hepatomegaly, no mass, no rebound, no guarding : No costovertebral angle tenderness Musculoskeletal: No edema, no tenderness, no deformities. Back- no tenderness Integument: Well hydrated, no rash, Digits and nails inspection normal Lymphatic: No lymphadenopathy noted Neurologic: Alert & oriented x 3, CN 2-12 normal, normal motor function, normal sensory function, no focal deficits noted Psychiatric: Speech and behavior appropriate ? labs No results found for this or any previous visit (from the past 24 hours). Labs from August 2024 showed iron 128 iron saturation 53% ferritin 105 AST 27 ALT 35 total bilirubin 0.6 Pathology ? Imaging & Other Studies Performance Status? Assessment / Plan: ? Hereditary hemochromatosis with [id number] homozygous state diagnosed on August 28, 2024. Patient is a pleasant 54-year-old female with history of recurrent genital herpes and migraine headache referred to me for hemochromatosis. According to the patient her twin sister was diagnosed with hemochromatosis and her father also has hemochromatosis. She has been complaining of tiredness and fatigue and arthralgia. I have reviewed the labs with the patient that showed elevated iron saturation. Liver enzymes were normal. I have discussed the complication of hemochromatosis and management in detail. I will repeat iron studies including CBC, CMP, iron saturation, ferritin level and soluble transferrin receptor. I have recommended avoiding iron containing food and alcohol consumption. She will also avoid multivitamin with iron and iron supplements. Based on the labs we will decide about phlebotomy to keep iron saturation less than 50 and ferritin of less than 200. I have recommended regular exercise and weight loss. I have answered all the questions to patient's satisfaction. Recurrent genital herpes. Patient is on chronic Zovirax. Migraine headaches. Patient is on Relpax. Thank you very much for allowing me to participate in Geno Saucedo's evaluation and management. Please feel free to contact if I can be of any further assistance in your patient???s care requiring hematology or oncology evaluation. Sincerely, ? ? Storm Tai M.D. cell TOBACCO COUNSELING She is not a tobacco/nicotine user. Storm Tai MD ,01/23/2025 1:51 PM ? Total time spent 60 minutes, two third of the total time spent counseling patient [id number]. CC:?Jared Hernandes MD documented in this encounter Plan of Treatment Upcoming Encounters Date Type Department Care Team (Late st Contact Info) Description 01/30/2025 4:30 PM CDT Telephone Check Up [facility] Oncology and Hematology [facility] [address] [place] [address] Storm Tai MD [address] [facility] [address] [place] [address] Scheduled Orders Name Type Priority Associated Diagnoses Orde r Schedule CBC WITHOUT DIFFERENTIAL Lab Stat Hereditary hemochromatosis Expected: 01/23/2025, Expires: 01/23/2026 COMPREHENSIVE METABOLIC PANEL Lab Stat Hereditary hemochromatosis Expected: 01/23/2025, Expires: 01/23/2026 FERRITIN Lab Routine Hereditary hemochromatosis Expected: 01/23/2025, Expires: 01/23/2026 IRON, TIBC, AND PERCENT SATURATION Lab Routine Hereditary hemochromatosis Expected: 01/23/2025, Expires: 01/23/2026 TRANSFERRIN RECEPTOR TFR SOLUBLE Lab Routine Hereditary hemochromatosis Expected: 01/23/2025, Expires: 01/23/2026 documented as of this encounter Visit Diagnoses Diagnosis Hereditary hemochromatosis- Primary documented in this encounter Care Teams Signing Teacher Relationship Specialty Start Date End Date Jared Hernandes MD [address] [facility] [address] [place] [address] PCP - General Family Practice 10/25/24 documented as of this encounter
[2025-01-23 14:10] LABS: Hematocrit 43.9 % (37.0-47.0); Hemoglobin 15.2 g/dL (12.0-15.0); Mean Corpuscular HGB Conc 34.6 g/dl (32-36); Mean Corpuscular Hemoglobin 32.0 pg (26-34); Mean Corpuscular Volume 92.4 fl (80-100); Platelet Count Result 244 k/mm3 (150-375); Red Blood Count 4.75 M/mm3 (4.2-5.4); White Blood Count 6.8 K/mm3 (4.5-10.0)
--- OUTSIDE RECORDS SUMMARY | 2025-01-23 16:10 | XMS_ITS | Clinical Summary ---
Author Organization [facility] Ismael torres [facility] Address [address] [place] [address] Care Team Providers Care Cement Mason Maintenance Name Role Phone Jared Hernandes MD Primary Care Provider [phone] Allergies No known active allergies Medications acyclovir (ZOVIRAX) 400 mg tablet TAKE 1 TABLET BY MOUTH DAILY NEEDED FOR COLD SORES 5 Active eletriptan (RELPAX) 40 mg Tablet PLEASE SEE ATTACHED FOR DETAILED DIRECTIONS 5 Active estradioL (ESTRACE) 1 mg tablet Take 1 Tablet by mouth daily. 5 Active progesterone micronized (PROMETRIUM) 200 mg Capsule Take 200 mg by mouth daily at bedtime. 5 Active Active Problems No known active problems Encounters Date Type Department Care Team Description 01/23/2025 1:30 PM CDT Office Visit [facility] On[facility] and H[facility]ology - [place] [address] [place] [address] Storm Tai MD Hereditary hemochromatosis (Primary Dx) from Last 3 Months Family History Medical History Relation Name Comments No Known Problems Brother No Known Problems Father No Known Problems Mother No Known Problems Sister Relation Name Status Comments Brother Alive Father Alive Mother Alive Sister Alive Social History Tobacco Use Types Packs/Day Years Used Date Smoking Tobacco: Never Smokeless Tobacco: Never Alcohol Use Standard Drinks/Week Comments Yes 0 (1 standard drink = 0.6 oz pur e alcohol) Comments Unknown Sex and Gender Information Value Date Recorded Sex Assigned at Not on file Legal Sex Female 10:42 AM CDT Gender Identity Not on file Sexual Orientation Not on file Last Filed Vital Signs Vital Sign Reading [...] Mass Index 29.8 01/23/2025 1:31 PM CDT Plan of Treatment Upcoming Encounters Date Type Department Care Team (Late st Contact Info) Description 01/30/2025 4:30 PM CDT Telephone Check Up [facility] On[facility] H[facility]ology [facility] [address] [facility] [address] [place] [address] Storm Tai MD [address] [facility] [address] [place] [address] Health Maintenance Due Date Last [...] 02/19/2016 ZOSTER VACCINE (1 of 2) 2021 Preventative Visit- Commercial 04/11/2024 INFLUENZA VACCINE (#1) 2024 Insurance [facility] CHOICE [id number] Care Teams Cement Mason Maintenance Relationship Specialty Start Date End Date Jared Hernandes MD [address] [facility] [address] [place] [address] PCP - General Family Practice 10/25/24
[2025-01-23 16:31] LABS: Alanine Aminotransferase 33 U/L (6-35); Albumin Level 4.2 g/dL (3.5-5.1); Alkaline Phosphatase 110 U/L (38-126); Anion Gap 6 mmol/L (4-12); Aspartate Amino Transferase 64 U/L (14-36); Bilirubin,Total 0.6 mg/dL (0.2-1.3); Blood Urea Nitrogen 16 mg/dL (7-17); Calcium 9.2 mg/dL (8.4-10.2); Carbon Dioxide 26 mmol/L (22-30); Chloride 105 mmol/L (98-107); Estimated Glomerular Filt Rate > 60; Glucose 101 mg/dL (65-110); Potassium 4.2 mmol/L (3.4-5.0); Sodium 137 mmol/L (137-145); Total Protein 7.6 g/dL (6.3-8.2)
[2025-01-23 17:44] LABS: Iron 165 ug/dL (37-170)
[2025-01-23 17:54] LABS: Percent Iron Saturation 72 % (20-50)
[2025-01-23 18:19] LABS: Ferritin 135.00 ng/mL (11.1-264)
== END 2025-01-23 13:56 | disposition home or self-care (01) ==
LOC: ANHLAB 13:56
PROVIDERS: PCP Family Medicine; Visit Provider Internal Medicine Hematology & Oncology
DX: E83.110 Hereditary hemochromatosis (principal)
CPT/HCPCS: 36415; 80053; 82728; 83540; 83550; 84238; 85027

== ENCOUNTER 2025-02-14 13:36 | Outpatient (CLI) | payer OTHER, SELFPAY ==
[2025-02-14 13:46] LABS: Hematocrit 45.4 % (37.0-47.0); Hemoglobin 15.4 g/dL (12.0-15.0); Mean Corpuscular HGB Conc 33.9 g/dl (32-36); Mean Corpuscular Hemoglobin 31.4 pg (26-34); Mean Corpuscular Volume 92.7 fl (80-100); Platelet Count Result 253 k/mm3 (150-375); Red Blood Count 4.90 M/mm3 (4.2-5.4); White Blood Count 7.2 K/mm3 (4.5-10.0)
[2025-02-14 14:41] LABS: Iron 109 ug/dL (37-170)
[2025-02-14 14:51] LABS: Percent Iron Saturation 47 % (20-50)
[2025-02-14 15:16] LABS: Ferritin 127.00 ng/mL (11.1-264)
--- OUTSIDE RECORDS SUMMARY | 2025-02-14 20:09 | XMS_ITS | Clinical Summary ---
Author Organization [facility] Ismael torres [place] Address [address] [place] [address] Care Team Providers Care Texture Artist Name Role Phone Jared Hernandes MD Primary Care Provider [phone] Allergies No known active allergies Medications acyclovir [...] Encounters Date Type Department Care Team Description 01/30/2025 4:30 PM CDT Telephone Check Up [facility] Hematology - [place] [address] [place] [address] Storm Tai MD Hereditary hemochromatosis (Primary Dx) 01/30/2025 External Device Data STL ABSTRACTION Provider, Abstract 01/30/2025 External Device Data STL ABSTRACTION Provider, Abstract 01/29/2025 External Device Data STL ABSTRACTION Provider, Abstract 01/29/2025 Orders Only [facility]ology - [place] [address] [place] [address] Storm Tai MD 01/24/2025 Orders Only [facility] - [place] [address] [place] [address] Storm Tai MD 01/23/2025 1:30 PM CDT Office Visit [facility] Hematology - [place] [address] [place] [address] Storm Tai MD Hereditary hemochromatosis [...] Care Team (Late st Contact Info) Description 05/06/2025 2:00 PM PRECISION INSPECTOR Office Visit [facility] Hematology - [place] [address] [place] [address] Storm Tai MD [address] [facility] [address] [place] [address] Health Maintenance Due Date Last Done Comments Pre-Diabetes and Diabetes Screening 1971 DTAP/TDAP/TD VACCINES (1 - Tdap) 1990 HEPATITIS [...] Visit- Commercial 04/11/2024 INFLUENZA VACCINE (#1) 2024 Procedures Procedure Name Priority Date/Time Associated Diagnosis Comments CHG SOLUBLE TRANSFERRIN RECEPTOR Routine 01/23/2025 12:51 PM CDT IRON, TIBC, AND PERCENT SATURATION Routine 01/23/2025 12:40 PM CDT COMPREHENSIVE METABOLIC PANEL Routine 01/23/2025 12:36 PM CDT CBC WITH AUTODIFFERENTIAL Routine 2024 12:27 PM CDT from Last 3 Months Results * CHG SOLUBLE TRANSFERRIN RECEPTOR (01/23/2025 12:51 PM CDT) us Storm Tai MD CHG - LABORATORY Final Result * IRON, TIBC, AND PERCENT SATURATION (01/23/2025 12:40 PM CDT) Blood us Storm Tai MD CHEMISTRY ORDERABLES Final Resu lt * COMPREHENSIVE METABOLIC PANEL (01/23/2025 12:36 PM CDT) Blood us Storm Tai MD CHEMISTRY ORDERABLES Final Resu lt * CBC WITH AUTODIFFERENTIAL (01/23/2025 12:27 PM CDT) Blood us Storm Tai MD HEMATOLOGY ORDERABLES Final Res ult from Last 3 Months Insurance [facility] CHOICE [id number] Care Teams Texture Artist Relationship Specialty Start Date End Date Jared Hernandes MD [address] [facility] [address] [place] [id number] PCP - General Family Practice 10/25/24
== END 2025-02-14 13:37 | disposition home or self-care (01) ==
LOC: ANHLAB 13:36
PROVIDERS: Visit Provider Internal Medicine Hematology & Oncology
DX: E83.110 Hereditary hemochromatosis (principal)
CPT/HCPCS: 36415; 82728; 83540; 83550; 85027